=== PATIENT | female | born 2000 | race American Indian/Alaskan Native ===

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

== ENCOUNTER 2019-12-03 23:27 | Outpatient (CLI) | payer OTHER ==
[2019-12-04 00:34] VITALS: BP 126/72
[2019-12-04 02:04] LABS: Hematocrit 31.6 % (30.3-42.9); Mean Corpuscular HGB Conc 35 % (30-34); Mean Corpuscular Volume 88 fl (79-97); Platelet Count 151 K/mm3 (140-440); Red Blood Count 3.59 M/mm3 (3.65-5.03); Red Cell Distribution Width 13.6 % (13.2-15.2)
--- NOTE | 2019-12-04 03:08 | Ultrasound Report ---
Examination: Ultrasound Obstetrical Limited, 12/04/2019 INDICATION: Evaluate for placental abruption COMPARISON: No prior studies are available for comparison. FINDINGS: There is a single living intrauterine with the head in the cephalic position. The placenta is posterior and fundal. There is no sonographic evidence of focal placental abnormality . heart rate equals 144 bpm. IMPRESSION: Limited obstetrical ultrasound with details as above. Signer Name: Kay Viera MD Signed: 12/04/2019 3:03 AM Workstation Name: [id number]
== END 2019-12-04 04:00 | disposition home or self-care (01) ==
LOC: TRG 23:27 → APU 23:28 → TRG 12-04 04:00
PROVIDERS: ATTEND Obstetrics & Gynecology
DX: O60.03 Preterm labor without delivery, third trimester (principal); Z3A.29 29 weeks gestation of pregnancy
CPT/HCPCS: 36415; 76815; 85027; 85384

== ENCOUNTER 2019-12-04 04:25 | Emergency (ER) | payer OTHER ==
[2019-12-04 05:29] VITALS: BP 120/65
[2019-12-04 07:32] LABS: Bilirubin,Urine NEG (Negative); Blood,Urine LG (Negative); Color,Urine Yellow (Yellow); Mucus,Urine FEW /HPF; Urobilinogen,Urine < 2.0 mg/dL (<2.0)
[2019-12-04 07:37] LABS: WBC,Urine > 182.0 /HPF (0.0-6.0)
[2019-12-04] MEDS ORDERED: LIDOCAINE-MPF (1%) 10 MG/1 ML VIAL 5 ML INFILTRATI ONE (08:02)
--- NOTE | 2019-12-04 08:17 | Emergency Department Report ---
ED Female HPI - General Chief complaint: Abdominal Pain Stated complaint: STOMACH & BACK PAIN Time Seen by Provider: 12/04/19 08:01 Source: patient Mode of arrival: Ambulatory Limitations: No Limitations - History of Present Illness Initial comments: Patient is a 19-year-old female presents emergency room with complaints of right flank pain that began yesterday. Patient states that she has been working a lot and just relates it to her work. She denies any fall or injury. She denies any other symptoms. She denies any dysuria, urinary frequency, urinary urgency, abnormal vaginal discharge, urinary retention, vaginal bleeding, fever, n/v/d. Patient is currently 29 weeks and was cleared by L&D prior to being seen in the emergency department. She states this is her first . She states her OB care is through [facility] and through [place] [facility]. She says her next scheduled appointment is December 19. Patient states this is her first . - Related Data Previous Rx's Medication Instructions Recorded Last Taken Type Ibuprofen [Motrin] 600 mg PO Q8H PRN #20 tablet 11/10/17 Unknown Rx Nitrofurantoin Monohyd/M-Cryst 100 mg PO BID #14 capsule 11/10/17 Unknown Rx [Macrobid 100 mg Capsule] Ondansetron [Zofran Odt] 4 mg PO Q8HR PRN #10 tab.rapdis 11/10/17 Unknown Rx traMADoL [Ultram] 50 mg PO Q6HR PRN #10 tablet 11/10/17 Unknown Rx cephALEXin [Keflex] 500 mg PO BID 10 Days #20 cap 12/04/19 Unknown Rx Allergies Allergy/AdvReac Type Severity Reaction Status Date / Time No Known Allergies Allergy Unverified 11/10/17 15:45 ED Review of Systems ROS: Stated complaint: STOMACH & BACK PAIN Other details as noted in HPI Comment: All other systems reviewed and negative ED Past Medical Hx - Past Medical History Previous Medical History?: No Hx Hypertension: No Hx Diabetes: No Hx Deep Vein Thrombosis: No Hx Renal Disease: No Hx Sickle Cell Disease: No Hx Seizures: No Hx Asthma: No Hx HIV: No - Surgical History Past Surgical History?: No - Social History Smoking Status: Never Smoker Substance Use Type: None - Medications Home Medications: Home Medications Medication Instructions Recorded Confirmed Last Taken Type Ibuprofen [Motrin] 600 mg PO Q8H PRN #20 tablet 11/10/17 Unknown Rx Nitrofurantoin Monohyd/M-Cryst 100 mg PO BID #14 capsule 11/10/17 Unknown Rx [Macrobid 100 mg Capsule] Ondansetron [Zofran Odt] 4 mg PO Q8HR PRN #10 tab.rapdis 11/10/17 Unknown Rx traMADoL [Ultram] 50 mg PO Q6HR PRN #10 tablet 11/10/17 Unknown Rx cephALEXin [Keflex] 500 mg PO BID 10 Days #20 cap 12/04/19 Unknown Rx ED Physical Exam - General Limitations: No Limitations General appearance: alert, in no apparent distress - Head Head exam: Present: atraumatic, normocephalic - Eye Eye exam: Present: normal appearance - ENT ENT exam: Present: mucous membranes moist - Respiratory Respiratory exam: Present: normal lung sounds bilaterally. Absent: respiratory distress, wheezes, rales, rhonchi, stridor, chest wall tenderness, accessory muscle use, decreased breath sounds, prolonged expiratory - Cardiovascular Cardiovascular Exam: Present: regular rate, normal rhythm, normal heart sounds. Absent: systolic murmur, diastolic murmur, rubs, gallop - Back Exam Back exam: Present: CVA tenderness (R). Absent: CVA tenderness (L) - Neurological Exam Neurological exam: Present: alert, oriented X3 - Psychiatric Psychiatric exam: Present: normal affect, normal mood - Skin Skin exam: Present: warm, dry, intact ED Course Vital Signs 12/04/19 05:14 Temperature 98.0 F Pulse Rate 109 H Respiratory 20 Rate Blood Pressure 120/65 O2 Sat by Pulse 95 Oximetry ED Medical Decision Making - Lab Data Lab Results 12/04/19 Range/Units 07:05 Urine Color Yellow (Yellow) Urine Turbidity Cloudy (Clear) Urine pH 6.0 (5.0-7.0) Ur Specific [place] 1.013 (1.003-1.030) Urine Protein 30 mg/dl (Negative) mg/dL Urine Glucose (UA) Neg (Negative) mg/dL Urine Ketones Neg (Negative) mg/dL Urine Blood Lg (Negative) Urine Nitrite Neg (Negative) Urine Bilirubin Neg (Negative) Urine Urobilinogen < 2.0 (<2.0) mg/dL Ur Leukocyte Esterase Lg (Negative) Urine WBC (Auto) > 182.0 H (0.0-6.0) /HPF Urine RBC (Auto) 103.0 (0.0-6.0) /HPF U Epithel Cells (Auto) 6.0 (0-13.0) /HPF Urine Mucus Few /HPF Vital Signs 12/04/19 05:14 Temperature 98.0 F Pulse Rate 109 H Respiratory 20 Rate Blood Pressure 120/65 O2 Sat by Pulse 95 Oximetry - Medical Decision Making Patient is a 19-year-old female presents emergency room with complaints of right flank pain that began yesterday. Patient states that she has been working a lot and just relates it to her work. She denies any fall or injury. She denies any other symptoms. She denies any dysuria, urinary frequency, urinary urgency, abnormal vaginal discharge, urinary retention, vaginal bleeding, fever, n/v/d. Patient is currently 29 weeks and was cleared by L&D prior to being seen in the emergency department. She states this is her first . She states her OB care is through [facility] and through [place] [facility]. She says her next scheduled appointment is December 19. Patient states this is her first . vss. pt is afebrile. On exam patient has right-sided CVA tenderness to percussion, no abdominal tenderness palpation. UA shows evidence of significant UTI. Patient given 1 g of ceftriaxone while in the emergency department. Patient is tolerating p.o. intake, she is not having nausea vomiting or diarrhea, she is not running a fever, patient meets outpatient criteria for pyelonephritis treatment. Patient given prescription for Keflex. Advised patient Please take medication as prescribed. Please increase your water intake over the next several days. Follow-up with your DIRECTOR GRAPHICS or your primary care doctor to have your urine retested for clearance of bacteria. Return to emergency room immediately for any new or worsening symptoms. Critical care attestation.: If time is entered above; I have spent that time in minutes in the direct care of this critically ill patient, excluding procedure time. ED Disposition Clinical Impression: UTI (urinary tract infection) Qualifiers: Urinary tract infection type: site unspecified Hematuria presence: with hematuria Qualified Code(s): N39.0 - Urinary tract infection, site not specified Disposition: TO HOME OR SELFCARE Is pt being admited?: No Does the pt Need Aspirin: No Condition: Stable Instructions: Urinary Tract Infection in Women (ED) Additional Instructions: Please take medication as prescribed. Please increase your water intake over the next several days. Follow-up with your DIRECTOR [employer]APHICS or your primary care doctor to have your urine retested for clearance of bacteria. Return to emergency room immediately for any new or worsening symptoms. Prescriptions: cephALEXin [Keflex] 500 mg PO BID 10 Days #20 cap Referrals: [facility] [Other] - 3-5 Days your, attendant [facility] [Other] - 3-5 Days Forms: Work/School Release Form(ED) Time of Disposition: 08:18 Print Language: FAROESE
== END 2019-12-04 08:26 | disposition home or self-care (01) ==
LOC: ED 04:25
DX: O23.41 Unspecified infection of urinary tract in pregnancy, first trimester (principal); Z3A.29 29 weeks gestation of pregnancy
CPT/HCPCS: 81001; 87086; 96372; 99283; J0696